=== PATIENT | male | born 1940 | race Caucasian/White ===

== ENCOUNTER → 2024-05-04 14:16 | Outpatient (CLI) | payer OTHER, SELFPAY ==
[2024-05-04 15:03] LABS: Influenza A - CEPHEID Flu A NEGATIVE (NEGATIVE); Influenza B - CEPHEID Flu B NEGATIVE (NEGATIVE); Respiratory Syncytial Virus Negative (Negative)
[2024-05-04 15:07] LABS: COVID-19 CEPHEID 4-PLEX PCR POSITIVE (Negative)
== END ==
PROVIDERS: Visit Provider Nurse Practitioner Family
DX: R05.1 Acute cough (principal)
CPT/HCPCS: 0241U

== ENCOUNTER 2024-07-17 11:15 | Outpatient (RCR) | payer OTHER, SELFPAY ==
--- NOTE | 2024-06-12 13:01 | PT.OIE ---
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 Family Provider Primary Care Provider Referring Provider Specialty: Family Practice Address: [address], [address], [place], [address] Phone: Fax: Email: [email or web address] Initial Evaluation PT-OP-A Visit Information Start: 06/12/24 07:18 Freq: Status: Active Protocol: Document 06/12/24 10:35 MB (Rec: 06/12/24 10:58 MB [id number]) Out-Patient Physical Therapy Visit Information Visit Information Visit Type Initial Evaluation Visit Note [employer] Visit Start Time 10:35 Visit Stop Time 11:15 Visit Number 1 Number of CRACKING AND FANNING MACHINE OPERATOR Visits 0 Evaluation Information Evaluation Date 06/12/24 PT-OP-B Current Condition Start: 06/12/24 07:18 Freq: Status: Active Protocol: Document 06/12/24 10:35 MB (Rec: 06/12/24 10:58 MB [id number]) Current Condition History of Current Condition Onset Date April 2024 Current Complaints See description below History of Current Condition Pt got COVID when driving up to [place] from [place] in April. He now considers it long COVID. The symptoms of the first COVID were weakness in hands and pain shooting up his forearms. Since then, his symptoms have stablized. 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 Distribution is in first three fingers of both hands and he cannot feel his fingers well. He reports tingling and shooting pain. He is having trouble with fine motor tasks including dressing, writing, eating, driving. Pt denies neck pain. Prior to February, he was very healthy and active for his age. Pt feels really distrissed about his symptoms since he used to be so healthy. His pain is less in his arms since acute COVID is over. Pt has familial hypercholestremia and no other rheumatological or other issues. Pt denies no respiratory or core problems. Pt is going to a chiropractor for spinal adjustments for neck and low back. Pt's providers are in [place] and he and are staying up in [place] in their RV until he feels well enough to drive home. He is worried about his arm and hand strength as far as driving home. Prior Treatments and Tests Chiropractor did an x-ray and said there were no major issues Treatment Goals Patient/Caregiver Goals To manipulate hands so he can drive, strengthening of the hands PT-OP-C Subjective Start: 06/12/24 07:18 Freq: Status: Active Protocol: Document 06/12/24 10:35 MB (Rec: 06/12/24 10:58 MB [id number]) OP-PT Subjective Patient Comments Patient Comments See history of current complaints Patient Questionnaires Quick Dash- Upper Extremity Quick Dash UE Score 34 Quick Dash UE Impairment 40 to 59% Impaired (Score 40- 59) PT-OP-J Posture/Palpation/Skin Start: 06/12/24 07:19 Freq: Status: Active Protocol: Document 06/12/24 10:35 MB (Rec: 06/12/24 10:58 MB [id number]) Posture Evaluation Comments Posture Comments Forward head, rounded shoulders, right thoracic kyphosis, left iliac crest higher than the left, tragus is 2 in front of AC joint, right scapula is mildly higher than the left, soft tissue feels mildly swollen medial left scapula, left calf has more muscle tone than the right. Right wrist, hand, and finger joints are swollen compared to the left. R SC joint is anterior compared to the left. Skin Assessment Other Assessments Skin Assessment Comments Edema right greater than left hand and wrist, skin is dry but no open areas and no erythema PT-OP-K Range of Motion Start: 06/12/24 07:19 Freq: Status: Active Protocol: Document 06/12/24 10:35 MB (Rec: 06/12/24 13:00 MB [id number]) Cervical Spine Range of Motion Cervical Spine Active Testing Position Sitting Flexion 25 Extension 25 Rotation Left 35 Rotation Right 25 Shoulder Goniometric Range of Motion Shoulder Left Shoulder ROM WFL No Testing Position Sitting Flexion 130 Right Shoulder ROM WFL No Testing Position Sitting Flexion 130 Elbow/Forearm Range of Motion Elbow/Forearm Bilateral Comments Elbow ROM flexion, extension and pronation and supination normal Wrist Goniometric Range of Motion ROM Limitations Wrist Limitations of Range of Motion Soft Tissue Tightness,Pain, Swelling Comments Decreased B wrist flexion and extension with more restriction right extension compared to left and add prayer hand stretch working elbows up for HEP. Finger Goniometric Range of Motion Finger ROM Limitations Finger ROM Limitations Soft Tissue Tightness,Muscle Weakness,Swelling Comments Pt with weakness and edema right greater than left hand and unable to fully extend fingers or fully sheather with more trouble on the right. Trouble with right greater than left hand finger to thumb coordination and range testing and added this to pt HEP. PT-OP-M Strength Start: 06/12/24 07:19 Freq: Status: Active Protocol: Document 06/12/24 10:35 MB (Rec: 06/12/24 13:00 MB [id number]) Shoulder Strength Shoulder Manual Muscle Testing Bilateral Flexion 5 Normal Abduction (C5) 5 Normal Elbow/Forearm Strength Elbow and Forearm Manual Muscle Testing Left Flexion (C6) 4 Good Extension (C7) 5 Normal Pronation 4 Good Supination 4+ Good+ Right Flexion (C6) 4 Good Extension (C7) 5 Normal Pronation 4- Good- Supination 4+ Good+ Wrist Strength Wrist Manual Muscle Testing Bilateral Comments In limited extension range, PT has trouble breaking extension and strength grossly 4+/5 in limited ROM. Pt has poor tolerance to flexion testing and he states his is unable to perform radial deviation and so not MMT. PT attempts to check reflexes and pt is unable to relax muscles and PT only able to elicit right biceps which is normal. PT-OP-Q Treatments Start: 06/12/24 07:19 Freq: Status: Active Protocol: Document 06/12/24 10:35 MB (Rec: 06/12/24 13:00 MB [id number]) Therapeutic Exercises Sitting Exercises Wrist extension prayer position Comments Added to HEP and performed several times with more limitations in right wri Finger to thumb Comments Added for both hands for HEP and practiced several times Self-Care/Home Management Treatment Education Patient Education Home Exercise Program Other Education Ed pt in findings and possibility that he could have other issues other than COVID for B LE and UE weakness including neurological demylenation, peripheral nerve or rheumotological concerns and ed pt on benefits of having further medical work-up . Ed pt that his presentation is complex and can initiate PT for strengthening and see if it is helpful given pt con't to ask about strengthening at end of assessment. PT-OP-T Assessment and Plan Start: 06/12/24 07:19 Freq: Status: Active Protocol: Document 06/12/24 10:35 MB (Rec: 06/12/24 13:00 MB [id number]) Physical Therapy Assessment Rehab Potential Rehabilitation Potential Fair Evaluation Complexity Number of Personal Factors/Comorbidities 1-2 Number of Body Systems Impaired 3 Clinical Presentation at Evaluation Evolving Impairments Impairments Coordination,Edema,Functional Activities,Functional Mobility ,Pain,Posture,ROM,Soft Tissue Mobility,Strength Goals 3 Impairment Lack of HEP Counter Installer Goal (LTG) Pt will perform progressive postural, range, strength and fine motor HEP with I to improve function, ability to drive and overall strength. LTG Duration 8 weeks 2 Impairment Decreased elbow, wrist and hand range and strength Counter Installer Goal (LTG) Pt will present with improved B elbow flexion, pronation, supination and wrist flexion and extension strength to at lesat 4+/5 to improve functional use of hands. LTG Duration 8 weeks 1 Impairment QuickDASH score reflects over 52% impairment Assisted Goal (LTG) Pt will present with QuickDASH score reflecting no more than 20% impairment to indicate improved function and strength . LTG Duration 8 weeks Assessment Summary Assessment Pt is an 83 y/o male presenting with complicated presentation that he feels is d/t COVID and post-COVID. Pt states he got COVID on the drive to [place] from [place] in late March. All of his providers are in [place] where he lives and he went to walk-in clinic here and also has a chiropractor here. He reports B hand and forearm shooting pain, swelling, weakness and numbness that occurred with COVID and after COVID. He also reports leg weakness B. He denies neck injury or pain and does state that he goes to chiropractor for spinal manipulation of neck and back. Pt con't to report neuropathy during assessment interview. Sitting MMT for hip flexion, knee flexion and extension and B DF and great toe extension are 4+/5. Shoulder flexion and abduction B are 5/5. Pt presents with B elbow, wrist and hand weakness and edema and weakness presentation are worse in the right hand compared to left. Proprioception testing and light touch sensory testing are normal. Pt has trouble tolerating reflex testing d/t decreased relaxation and PT is only able to elicit right biceps which is normal. PT ed pt that his presentation may be more complicated than COVID given symptoms and could include neurological demylinating or peripheral nerve or rheumatological contributions and warrant a referral back to his provider for assessment and possible other medical referrals. Pt states that he and are stuck in [place] until he feels his arms are strong enough to drive home. He asks to try PT for strengthening and so will initiate trial. Functional prognosis is guarded. Physical Therapy Plan Frequency and Duration Frequency of Treatment 1-2x/wk, trial Duration of treatment (weeks) 8 Plan of Care Start Date 06/12/24 Plan of Care End Date 08/20/24 Therapeutic Interventions Therapeutic Interventions Balance Training,Canalithic Repositioning,Coordination Training,Home Exercise Program ,Joint Mobilizations,Manual Therapy,Neuromuscular Re- education,Patient/Caregiver Education,Self-Care/Home Management,Sensory Integration ,Soft Tissue Mobilization, Taping,Therapeutic Activities, Therapeutic Exercises Modalities Cold Pack/Ice Massage,Electric Stimulation,Hot Packs, Iontophoresis,Paraffin Bath, Ultrasound Other Therapeutic Interventions Cold laser Other Referrals/Consults Referrals/Consults Recommended Refer back to PCP for full work-up with possible consideration of neurology, rheumatology or EMG testing Next Visit Focus/Plan Next Note Type Treatment Note Next Visit Plan Review and progress exercises
--- NOTE | 2024-06-12 13:01 | PT.OPPOC ---
Physical, Occupational & Speech Therapy At [facility] Current Diagnoses Pain in right arm (06/12/24) Pain in left arm (06/12/24) Visit Care Team Role Provider Type NIRMAL English Attending Provider Advanced Float Operator Family Provider Primary Care Provider Referring Provider Specialty: Family Practice Address: [address] [place] [address] [address], [place], [address] Phone: Fax: Email: [email or web address] Plan Of Care PT-OP-T Assessment and Plan Start: 06/12/24 07:19 Freq: Status: Active Protocol: Document 06/12/24 10:35 MB (Rec: 06/12/24 13:00 MB [id number]) Physical Therapy Assessment Rehab Potential Rehabilitation Potential Fair Evaluation Complexity Number of Personal Factors/Comorbidities 1-2 Number of Body Systems Impaired 3 Clinical Presentation at Evaluation Evolving Impairments Impairments Coordination,Edema,Functional Activities,Functional Mobility ,Pain,Posture,ROM,Soft Tissue Mobility,Strength Goals 3 Impairment Lack of HEP Lead Technician Goal (LTG) Pt will perform progressive postural, range, strength and fine motor HEP with I to improve function, ability to drive and overall strength. LTG Duration 8 weeks 2 Impairment Decreased elbow, wrist and hand range and strength Fpc Goal (LTG) Pt will present with improved B elbow flexion, pronation, supination and wrist flexion and extension strength to at lesat 4+/5 to improve functional use of hands. LTG Duration 8 weeks 1 Impairment QuickDASH score reflects over 52% impairment Lead Technician Goal (LTG) Pt will present with QuickDASH score reflecting no more than 20% impairment to indicate improved function and strength . LTG Duration 8 weeks Assessment Summary Assessment Pt is an 83 y/o male presenting with complicated presentation that he feels is d/t COVID and post-COVID. Pt states he got COVID on the drive to [place] from [place] in late March. All of his providers are in [place] where he lives and he went to walk-in clinic here and also has a chiropractor here. He reports B hand and forearm shooting pain, swelling, weakness and numbness that occurred with COVID and after COVID. He also reports leg weakness B. He denies neck injury or pain and does state that he goes to chiropractor for spinal manipulation of neck and back. Pt con't to report neuropathy during assessment interview. Sitting MMT for hip flexion, knee flexion and extension and B DF and great toe extension are 4+/5. Shoulder flexion and abduction B are 5/5. Pt presents with B elbow, wrist and hand weakness and edema and weakness presentation are worse in the right hand compared to left. Proprioception testing and light touch sensory testing are normal. Pt has trouble tolerating reflex testing d/t decreased relaxation and PT is only able to elicit right biceps which is normal. PT ed pt that his presentation may be more complicated than COVID given symptoms and could include neurological demylinating or peripheral nerve or rheumatological contributions and warrant a referral back to his provider for assessment and possible other medical referrals. Pt states that he and are stuck in [place] until he feels his arms are strong enough to drive home. He asks to try PT for strengthening and so will initiate trial. Functional prognosis is guarded. Physical Therapy Plan Frequency and Duration Frequency of Treatment 1-2x/wk, trial Duration of treatment (weeks) 8 Plan of Care Start Date 06/12/24 Plan of Care End Date 08/20/24 Therapeutic Interventions Therapeutic Interventions Balance Training,Canalithic Repositioning,Coordination Training,Home Exercise Program ,Joint Mobilizations,Manual Therapy,Neuromuscular Re- education,Patient/Caregiver Education,Self-Care/Home Management,Sensory Integration ,Soft Tissue Mobilization, Taping,Therapeutic Activities, Therapeutic Exercises Modalities Cold Pack/Ice Massage,Electric Stimulation,Hot Packs, Iontophoresis,Paraffin Bath, Ultrasound Other Therapeutic Interventions Cold laser Other Referrals/Consults Referrals/Consults Recommended Refer back to PCP for full work-up with possible consideration of neurology, rheumatology or EMG testing Next Visit Focus/Plan Next Note Type Treatment Note Next Visit Plan Review and progress exercises Plan of Care Dates Plan of Care Start Date 06/12/24 Plan of Care End Date 08/20/24 Electronically Signed by: Ana Maria Gates PT 06/12/24 [id number] If you are in agreement with this Plan of Care, please return a signed and dated copy. I have reviewed this Plan of Care and certify that the skilled therapy services above are required to meet the patient?s needs. Physician Signature Date Printed Name and Credentials Clinical Instructor Signature Printed Name and Credentials
--- NOTE | 2024-06-27 14:36 | PT.OTN ---
Current Diagnoses Pain in right arm (06/27/24) Pain in left arm (06/27/24) Physical Therapy Treatment Note PT-OP-A Visit Information Start: 06/12/24 07:18 Freq: Status: Active Protocol: Document 06/27/24 13:48 MB (Rec: 06/27/24 14:33 MB [id number]) Out-Patient Physical Therapy Visit Information Visit Information Visit Type Treatment Note Visit Note Pt prefers to have clinician mask. Visit Start Time 13:48 Visit Stop Time 14:28 Visit Number 2 Number of ENDS BREAKAGE CLERK Visits 0 Evaluation Information Evaluation Date 06/12/24 PT-OP-B Current Condition Start: 06/12/24 07:18 Freq: Status: Active Protocol: Document 06/12/24 10:35 MB (Rec: 06/12/24 10:58 MB [id number]) Current Condition History of Current Condition Onset Date April 2024 Current Complaints See description below History of Current Condition Pt got COVID when driving up to [place] from [place] in April. He now considers it long COVID. The symptoms of the first COVID were weakness in hands and pain shooting up his forearms. Since then, his symptoms have stablized. 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 Distribution is in first three fingers of both hands and he cannot feel his fingers well. He reports tingling and shooting pain. He is having trouble with fine motor tasks including dressing, writing, eating, driving. Pt denies neck pain. Prior to February, he was very healthy and active for his age. Pt feels really distrissed about his symptoms since he used to be so healthy. His pain is less in his arms since acute COVID is over. Pt has familial hypercholestremia and no other rheumatological or other issues. Pt denies no respiratory or core problems. Pt is going to a chiropractor for spinal adjustments for neck and low back. Pt's providers are in [place] and he and are staying up in [place] in their RV until he feels well enough to drive home. He is worried about his arm and hand strength as far as driving home. Prior Treatments and Tests Chiropractor did an x-ray and said there were no major issues Treatment Goals Patient/Caregiver Goals To manipulate hands so he can drive, strengthening of the hands PT-OP-C Subjective Start: 06/12/24 07:18 Freq: Status: Active Protocol: Document 06/27/24 13:48 MB (Rec: 06/27/24 14:33 MB [id number]) OP-PT Subjective Patient Comments Patient Comments Pt states that he has had no changes in the hand weakness. PT-OP-J Posture/Palpation/Skin Start: 06/12/24 07:19 Freq: Status: Active Protocol: Document 06/12/24 10:35 MB (Rec: 06/12/24 10:58 MB [id number]) Posture Evaluation Comments Posture Comments Forward head, rounded shoulders, right thoracic kyphosis, left iliac crest higher than the left, tragus is 2 in front of AC joint, right scapula is mildly higher than the left, soft tissue feels mildly swollen medial left scapula, left calf has more muscle tone than the right. Right wrist, hand, and finger joints are swollen compared to the left. R SC joint is anterior compared to the left. Skin Assessment Other Assessments Skin Assessment Comments Edema right greater than left hand and wrist, skin is dry but no open areas and no erythema PT-OP-K Range of Motion Start: 06/12/24 07:19 Freq: Status: Active Protocol: Document 06/12/24 10:35 MB (Rec: 06/12/24 13:00 MB [id number]) Cervical Spine Range of Motion Cervical Spine Active Testing Position Sitting Flexion 25 Extension 25 Rotation Left 35 Rotation Right 25 Shoulder Goniometric Range of Motion Shoulder Left Shoulder ROM WFL No Testing Position Sitting Flexion 130 Right Shoulder ROM WFL No Testing Position Sitting Flexion 130 Elbow/Forearm Range of Motion Elbow/Forearm Bilateral Comments Elbow ROM flexion, extension and pronation and supination normal Wrist Goniometric Range of Motion ROM Limitations Wrist Limitations of Range of Motion Soft Tissue Tightness,Pain, Swelling Comments Decreased B wrist flexion and extension with more restriction right extension compared to left and add prayer hand stretch working elbows up for HEP. 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 Trouble with right greater than left hand finger to thumb coordination and range testing and added this to pt HEP. PT-OP-M Strength Start: 06/12/24 07:19 Freq: Status: Active Protocol: Document 06/12/24 10:35 MB (Rec: 06/12/24 13:00 MB [id number]) Shoulder Strength Shoulder Manual Muscle Testing Bilateral Flexion 5 Normal Abduction (C5) 5 Normal Elbow/Forearm Strength Elbow and Forearm Manual Muscle Testing Left Flexion (C6) 4 Good Extension (C7) 5 Normal Pronation 4 Good Supination 4+ Good+ Right Flexion (C6) 4 Good Extension (C7) 5 Normal Pronation 4- Good- Supination 4+ Good+ Wrist Strength Wrist Manual Muscle Testing Bilateral Comments In limited extension range, PT has trouble breaking extension and strength grossly 4+/5 in limited ROM. Pt has poor tolerance to flexion testing and he states his is unable to perform radial deviation and so not MMT. PT attempts to check reflexes and pt is unable to relax muscles and PT only able to elicit right biceps which is normal. PT-OP-Q Treatments Start: 06/12/24 07:19 Freq: Status: Active Protocol: Document 06/27/24 13:48 MB (Rec: 06/27/24 14:33 MB [id number]) Therapeutic Exercises Sitting Exercises Resisted wrist extension and pronation and supination, elbows at side Side bilateral Resistance Level 1 TB Reps/Minutes 10 reps x2 Comments Wrist extension; supination and pronation Gripping sponge for home use Side bilateral Comments Performed today with pick sponge in zip and gave for home Syrup Shed Supervisor testing Sitting Exercise Name Poor finger flexion to allow sheet metal duct installer helper and extractor loader and unloader with a few hands Side bilateral Comments Right: 5 lb, 5 lb, 3 lb; Left: 4 lb, 6 lb, 6 lb, 10 lb Wrist extension prayer position Comments Pt has trouble getting into position with right hand and will con't Finger to thumb Comments Very poor fine motor ability Standing Exercises Wrist extension against wall Comments This does not go well and so not giving for HEP Scapular retraction against pool noodle against RV Equipment Used Red pool noodle Reps/Minutes 5 reps Comments Several reps with noodle against the wall Alphabet writing in standing Equipment Used Red pool noodle Reps/Minutes Better with back against wall (RV at home) Comments A-M with right hand and N-Z with left hand, cues to draw with wrist, harder Manual Therapy Treatment Consent Patient gave verbal consent for manual Yes treatment Other Other Manual Treatments B pects tight with limitations passive abduction and flexion in supine and pt has trouble letting PT perform PROM PT-OP-T Assessment and Plan Start: 06/12/24 07:19 Freq: Status: Active Protocol: Document 06/27/24 13:48 MB (Rec: 06/27/24 14:33 MB [id number]) Physical Therapy Assessment Rehab Potential Rehabilitation Potential Fair Evaluation Complexity Number of Personal Factors/Comorbidities 1-2 Number of Body Systems Impaired 3 Clinical Presentation at Evaluation Evolving Impairments Impairments Coordination,Edema,Functional Activities,Functional Mobility ,Pain,Posture,ROM,Soft Tissue Mobility,Strength Goals 3 Impairment Lack of HEP Fpc Goal (LTG) Pt will perform progressive postural, range, strength and fine motor HEP with I to improve function, ability to drive and overall strength. LTG Duration 8 weeks 2 Impairment Decreased elbow, wrist and hand range and strength Fpc Goal (LTG) Pt will present with improved B elbow flexion, pronation, supination and wrist flexion and extension strength to at lesat 4+/5 to improve functional use of hands. LTG Duration 8 weeks 1 Impairment QuickDASH score reflects over 52% impairment Technical Support Consultant Goal (LTG) Pt will present with QuickDASH score reflecting no more than 20% impairment to indicate improved function and strength . LTG Duration 8 weeks Assessment Summary Assessment Progressed exercises today. Pt thinks hand swelling is slightly better and weakness and fine motor findings are the same. PT is in agreement. Very poor fine motor finger performance today. PT continue to be concerned about an underlying neurological presentation. Pt's thoracic spine has many changes and is tight and will progress work on thoracic spine next treatment. Physical Therapy Plan Frequency and Duration Frequency of Treatment 1-2x/wk, trial Duration of treatment (weeks) 8 Plan of Care Start Date 06/12/24 Plan of Care End Date 08/20/24 Therapeutic Interventions Therapeutic Interventions Balance Training,Canalithic Repositioning,Coordination Training,Home Exercise Program ,Joint Mobilizations,Manual Therapy,Neuromuscular Re- education,Patient/Caregiver Education,Self-Care/Home Management,Sensory Integration ,Soft Tissue Mobilization, Taping,Therapeutic Activities, Therapeutic Exercises Modalities Cold Pack/Ice Massage,Electric Stimulation,Hot Packs, Iontophoresis,Paraffin Bath, Ultrasound Other Therapeutic Interventions Cold laser Other Referrals/Consults Referrals/Consults Recommended Refer back to PCP for full work-up with possible consideration of neurology, rheumatology or EMG testing Next Visit Focus/Plan Next Note Type Treatment Note Next Visit Plan Consider pool noodle exercises and try pulleys, consider cane flexion over pool noodle, consider thoracic mobility in sitting as far as an exercise and manual work
--- NOTE | 2024-07-04 13:56 | PT.OTN ---
Current Diagnoses Pain in right arm (07/04/24) Pain in left arm (07/04/24) Physical Therapy Treatment Note PT-OP-A Visit Information Start: 06/12/24 07:18 Freq: Status: Active Protocol: Document 07/04/24 12:55 MB (Rec: 07/04/24 13:17 MB [id number]) Out-Patient Physical Therapy Visit Information Visit Information Visit Type Treatment Note Visit Note Pt prefers to have clinician mask. Visit Start Time 12:55 Visit Stop Time 13:35 Visit Number 3 Number of KNIFE CHANGER Visits 0 Evaluation Information Evaluation Date 06/12/24 PT-OP-B Current Condition Start: 06/12/24 07:18 Freq: Status: Active Protocol: Document 06/12/24 10:35 MB (Rec: 06/12/24 10:58 MB [id number]) Current Condition History of Current Condition Onset Date April 2024 Current Complaints See description below History of Current Condition Pt got COVID when driving up to [place] from [place] in April. He now considers it long COVID. The symptoms of the first COVID were weakness in hands and pain shooting up his forearms. Since then, his symptoms have stablized. 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 Distribution is in first three fingers of both hands and he cannot feel his fingers well. He reports tingling and shooting pain. He is having trouble with fine motor tasks including dressing, writing, eating, driving. Pt denies neck pain. Prior to February, he was very healthy and active for his age. Pt feels really distrissed about his symptoms since he used to be so healthy. His pain is less in his arms since acute COVID is over. Pt has familial hypercholestremia and no other rheumatological or other issues. Pt denies no respiratory or core problems. Pt is going to a chiropractor for spinal adjustments for neck and low back. Pt's providers are in [place] and he and are staying up in [place] in their RV until he feels well enough to drive home. He is worried about his arm and hand strength as far as driving home. Prior Treatments and Tests Chiropractor did an x-ray and said there were no major issues Treatment Goals Patient/Caregiver Goals To manipulate hands so he can drive, strengthening of the hands PT-OP-C Subjective Start: 06/12/24 07:18 Freq: Status: Active Protocol: Document 07/04/24 12:55 MB (Rec: 07/04/24 13:17 MB [id number]) OP-PT Subjective Patient Comments Patient Comments Pt states that day by day, it' s hard to tell but he is moving forwards and not backwards. He notices a wrinkle returning in the thenar eminence of both hands rather than puffiness. The backs of both hands have some veins showing. He feels that in the morning, things are terrible. He cannot move as well. He will follow-up with PCP in [place] when he can. PT-OP-J Posture/Palpation/Skin Start: 06/12/24 07:19 Freq: Status: Active Protocol: Document 06/12/24 10:35 MB (Rec: 06/12/24 10:58 MB [id number]) Posture Evaluation Comments Posture Comments Forward head, rounded shoulders, right thoracic kyphosis, left iliac crest higher than the left, tragus is 2 in front of AC joint, right scapula is mildly higher than the left, soft tissue feels mildly swollen medial left scapula, left calf has more muscle tone than the right. Right wrist, hand, and finger joints are swollen compared to the left. R SC joint is anterior compared to the left. Skin Assessment Other Assessments Skin Assessment Comments Edema right greater than left hand and wrist, skin is dry but no open areas and no erythema PT-OP-K Range of Motion Start: 06/12/24 07:19 Freq: Status: Active Protocol: Document 06/12/24 10:35 MB (Rec: 06/12/24 13:00 MB [id number]) Cervical Spine Range of Motion Cervical Spine Active Testing Position Sitting Flexion 25 Extension 25 Rotation Left 35 Rotation Right 25 Shoulder Goniometric Range of Motion Shoulder Left Shoulder ROM WFL No Testing Position Sitting Flexion 130 Right Shoulder ROM WFL No Testing Position Sitting Flexion 130 Elbow/Forearm Range of Motion Elbow/Forearm Bilateral Comments Elbow ROM flexion, extension and pronation and supination normal Wrist Goniometric Range of Motion ROM Limitations Wrist Limitations of Range of Motion Soft Tissue Tightness,Pain, Swelling Comments Decreased B wrist flexion and extension with more restriction right extension compared to left and add prayer hand stretch working elbows up for HEP. 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 Trouble with right greater than left hand finger to thumb coordination and range testing and added this to pt HEP. PT-OP-M Strength Start: 06/12/24 07:19 Freq: Status: Active Protocol: Document 06/12/24 10:35 MB (Rec: 06/12/24 13:00 MB [id number]) Shoulder Strength Shoulder Manual Muscle Testing Bilateral Flexion 5 Normal Abduction (C5) 5 Normal Elbow/Forearm Strength Elbow and Forearm Manual Muscle Testing Left Flexion (C6) 4 Good Extension (C7) 5 Normal Pronation 4 Good Supination 4+ Good+ Right Flexion (C6) 4 Good Extension (C7) 5 Normal Pronation 4- Good- Supination 4+ Good+ Wrist Strength Wrist Manual Muscle Testing Bilateral Comments In limited extension range, PT has trouble breaking extension and strength grossly 4+/5 in limited ROM. Pt has poor tolerance to flexion testing and he states his is unable to perform radial deviation and so not MMT. PT attempts to check reflexes and pt is unable to relax muscles and PT only able to elicit right biceps which is normal. PT-OP-Q Treatments Start: 06/12/24 07:19 Freq: Status: Active Protocol: Document 07/04/24 12:55 MB (Rec: 07/04/24 13:17 MB [id number]) Therapeutic Exercises Supine Exercises Pect stretch Supine Exercise Name Pillow under head Side bilateral Comments 1 minute hold, knees bent Shoulder flexion with cane Supine Exercise Name Pillow under head Side bilateral Equipment Used Hiking stick and pool noodle Reps/Minutes 10 reps x2 Comments Knees bent Manual Therapy Treatment Consent Patient gave verbal consent for manual Yes treatment Other Other Manual Treatments Pt hook lying with head and legs supported: lavage and STM B UEs, hands, forearms, proximal arms and up to pects to improve lymphatic and myofascial mobility, monitor response PT-OP-T Assessment and Plan Start: 06/12/24 07:19 Freq: Status: Active Protocol: Document 07/04/24 12:55 MB (Rec: 07/04/24 13:17 MB [id number]) Physical Therapy Assessment Rehab Potential Rehabilitation Potential Fair Evaluation Complexity Number of Personal Factors/Comorbidities 1-2 Number of Body Systems Impaired 3 Clinical Presentation at Evaluation Evolving Impairments Impairments Coordination,Edema,Functional Activities,Functional Mobility ,Pain,Posture,ROM,Soft Tissue Mobility,Strength Goals 3 Impairment Lack of HEP Detention Goal (LTG) Pt will perform progressive postural, range, strength and fine motor HEP with I to improve function, ability to drive and overall strength. LTG Duration 8 weeks 2 Impairment Decreased elbow, wrist and hand range and strength Operator Bearer Systems Goal (LTG) Pt will present with improved B elbow flexion, pronation, supination and wrist flexion and extension strength to at lesat 4+/5 to improve functional use of hands. LTG Duration 8 weeks 1 Impairment QuickDASH score reflects over 52% impairment Operator Bearer Systems Goal (LTG) Pt will present with QuickDASH score reflecting no more than 20% impairment to indicate improved function and strength . LTG Duration 8 weeks Assessment Summary Assessment Pt has no exercise questions and added shoulder flexion with cane today to help with movement in the mornings and pect stretch to help with thoracic tightness and pect tightness. Lavage and STM and positional release B UEs this date to see if swelling improves. Hand specialist PT next PT treatment. Left wedding ring still stuck on 4th digit. Physical Therapy Plan Frequency and Duration Frequency of Treatment 1-2x/wk, trial Duration of treatment (weeks) 8 Plan of Care Start Date 06/12/24 Plan of Care End Date 08/20/24 Therapeutic Interventions Therapeutic Interventions Balance Training,Canalithic Repositioning,Coordination Training,Home Exercise Program ,Joint Mobilizations,Manual Therapy,Neuromuscular Re- education,Patient/Caregiver Education,Self-Care/Home Management,Sensory Integration ,Soft Tissue Mobilization, Taping,Therapeutic Activities, Therapeutic Exercises Modalities Cold Pack/Ice Massage,Electric Stimulation,Hot Packs, Iontophoresis,Paraffin Bath, Ultrasound Other Therapeutic Interventions Cold laser Other Referrals/Consults Referrals/Consults Recommended Refer back to PCP for full work-up with possible consideration of neurology, rheumatology or EMG testing Next Visit Focus/Plan Next Note Type Treatment Note Next Visit Plan Try pulleys, consider cane flexion over pool noodle, consider thoracic mobility in sitting as far as an exercise and manual work
--- NOTE | 2024-07-10 16:00 | PT.OTN ---
Current Diagnoses Pain in right arm (07/10/24) Pain in left arm (07/10/24) Physical Therapy Treatment Note PT-OP-A Visit Information Start: 06/12/24 07:18 Freq: Status: Active Protocol: Document 07/10/24 14:37 LRN (Rec: 07/10/24 15:26 LRN [id number]) Out-Patient Physical Therapy Visit Information Visit Information Visit Type Treatment Note Visit Note Pt prefers to have clinician mask. 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 He now considers it long COVID. The symptoms of the first COVID were weakness in hands and pain shooting up his forearms. Since then, his symptoms have stablized. 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 Distribution is in first three fingers of both hands and he cannot feel his fingers well. He reports tingling and shooting pain. He is having trouble with fine motor tasks including dressing, writing, eating, driving. Pt denies neck pain. Prior to February, he was very healthy and active for his age. Pt feels really distrissed about his symptoms since he used to be so healthy. His pain is less in his arms since acute COVID is over. Pt has familial hypercholestremia and no other rheumatological or other issues. Pt denies no respiratory or core problems. Pt is going to a chiropractor for spinal adjustments for neck and low back. Pt's providers are in [place] and he and are staying up in [place] in their RV until he feels well enough to drive home. He is worried about his arm and hand strength as far as driving home. Prior Treatments and Tests Chiropractor did an x-ray and said there were no major issues Treatment Goals Patient/Caregiver Goals To manipulate hands so he can drive, strengthening of the hands PT-OP-C Subjective Start: 06/12/24 07:18 Freq: Status: Active Protocol: Document 07/10/24 14:37 LRN (Rec: 07/10/24 15:26 LRN [id number]) OP-PT Subjective Patient Comments Patient Comments States he is leaving back to [place] at first of Jul. Has 2 more appts scheduled. Has been given ex's for hand ( squeezing of ball) and elbow. Got COVID 05/09/24. States the swelling in his R hand is down. States he has tinging/ numbness and lack of function in both hands Severity of function of the fingers is from worst to best, thumb to pinky. PT-OP-J Posture/Palpation/Skin Start: 06/12/24 07:19 Freq: Status: Active Protocol: Document 06/12/24 10:35 MB (Rec: 06/12/24 10:58 MB [id number]) Posture Evaluation Comments Posture Comments Forward head, rounded shoulders, right thoracic kyphosis, left iliac crest higher than the left, tragus is 2 in front of AC joint, right scapula is mildly higher than the left, soft tissue feels mildly swollen medial left scapula, left calf has more muscle tone than the right. Right wrist, hand, and finger joints are swollen compared to the left. R SC joint is anterior compared to the left. Skin Assessment Other Assessments Skin Assessment Comments Edema right greater than left hand and wrist, skin is dry but no open areas and no erythema PT-OP-K Range of Motion Start: 06/12/24 07:19 Freq: Status: Active Protocol: Document 06/12/24 10:35 MB (Rec: 06/12/24 13:00 MB [id number]) Cervical Spine Range of Motion Cervical Spine Active Testing Position Sitting Flexion 25 Extension 25 Rotation Left 35 Rotation Right 25 Shoulder Goniometric Range of Motion Shoulder Left Shoulder ROM WFL No Testing Position Sitting Flexion 130 Right Shoulder ROM WFL No Testing Position Sitting Flexion 130 Elbow/Forearm Range of Motion Elbow/Forearm Bilateral Comments Elbow ROM flexion, extension and pronation and supination normal Wrist Goniometric Range of Motion ROM Limitations Wrist Limitations of Range of Motion Soft Tissue Tightness,Pain, Swelling Comments Decreased B wrist flexion and extension with more restriction right extension compared to left and add prayer hand stretch working elbows up for HEP. Finger Goniometric Range of Motion Finger ROM Limitations Finger ROM Limitations Soft Tissue Tightness,Muscle Weakness,Swelling Comments Pt with weakness and edema right greater than left hand and unable to fully extend fingers or fully orthopedics nurse with more trouble on the right. Trouble with right greater than left hand finger to thumb coordination and range testing and added this to pt HEP. PT-OP-L Special Tests Start: 07/10/24 15:32 Freq: Status: Active Protocol: Document 07/10/24 14:37 LRN (Rec: 07/10/24 15:34 LRN [id number]) Special Tests Cervical Spine Special Tests Vertebral Artery Test Results negative Traction Test Results negative Foraminal Compression Test Results negative Spurling's Test Test Results negative (in supine) PT-OP-M Strength Start: 06/12/24 07:19 Freq: Status: Active Protocol: Document 06/12/24 10:35 MB (Rec: 06/12/24 13:00 MB [id number]) Shoulder Strength Shoulder Manual Muscle Testing Bilateral Flexion 5 Normal Abduction (C5) 5 Normal Elbow/Forearm Strength Elbow and Forearm Manual Muscle Testing Left Flexion (C6) 4 Good Extension (C7) 5 Normal Pronation 4 Good Supination 4+ Good+ Right Flexion (C6) 4 Good Extension (C7) 5 Normal Pronation 4- Good- Supination 4+ Good+ Wrist Strength Wrist Manual Muscle Testing Bilateral Comments In limited extension range, PT has trouble breaking extension and strength grossly 4+/5 in limited ROM. Pt has poor tolerance to flexion testing and he states his is unable to perform radial deviation and so not MMT. PT attempts to check reflexes and pt is unable to relax muscles and PT only able to elicit right biceps which is normal. PT-OP-Q Treatments Start: 06/12/24 07:19 Freq: Status: Active Protocol: Document 07/10/24 14:37 LRN (Rec: 07/10/24 15:26 LRN [id number]) Therapeutic Exercises Supine Exercises Fingers/thumb flex/ext Side bilateral Reps/Minutes 15x Comments Cued to tighten ms at end range Wrist flex/ext/UD/RD Side bilateral Reps/Minutes 15x Comments Cued to tighten ms at end range Elbow Flex/Ext Side bilateral Reps/Minutes 15x Comments Cued to tighten ms at end range Elbow Sup/pron Side bilateral Reps/Minutes 15x Comments Cued for palm to be straight up and down. Pect stretch Supine Exercise Name Hands behind head Side bilateral Sitting Exercises Shoulder stretch Sitting Exercise Name flex-sliding arms fwd on table . Side bilateral Reps/Minutes 3' Finger to thumb Side bilateral Reps/Minutes 2x each Comments R hand thumb to 5th limited bc 4th digit in way of 5th. Standing Exercises Shoulder flex stretch Standing Exercise Name Hands behind head with elbows on wall. Side bilateral Reps/Minutes 3' Comments Cued to slide elbows up wall for stretch. Self-Care/Home Management Treatment Education Patient Education Home Exercise Program Other Education Discussed use of tumeric for inflammation as brought up by pt. Educated pt in use of contrast bath to reduce swelling. Activities Self-Care/Home Management Activities Issued handout for contrast bath to reduce swellng. Issued HEP: Wrist sup/ext/UD stretch; Active ROM (I/S active stretch with pic of resistance) for forearm pron/ sup, wrist flex/ext, elbow flex, ext; shoulder flex stretch: over table & standing, I/S elbow on wall, pic lat shldr stretch. PT-OP-T Assessment and Plan Start: 06/12/24 07:19 Freq: Status: Active Protocol: Document 07/10/24 14:37 LRN (Rec: 07/10/24 15:26 LRN [id number]) Physical Therapy Assessment Goals 3 Impairment Lack of HEP Basting Machine Operator Goal (LTG) Pt will perform progressive postural, range, strength and fine motor HEP with I to improve function, ability to drive and overall strength. 07/04/24: I/S HEPs of wrist ext/sup/pron & finger flex ( squeeze sponge) on 06/27/24; HEP I/S of sup shdr flex stretch & pec stretch. 07/10/24: HEP: stretch wrist sup, ext, UD & active stretch ROM wrists sup/pron/flex/ext, elbow flex/ext, and shoulder flex. 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 07/10/24: HEP: Active stretch wrist flex/ext/pron/ sup, elbow flex/ext, shoulder flex table and wall slides. Passive wrist sup/ext/UD. LTG Duration 8 weeks progressed 07/10/24 1 Impairment QuickDASH score reflects over 52% impairment Basting Machine Operator Goal (LTG) Pt will present with QuickDASH score reflecting no more than 20% impairment to indicate improved function and strength . LTG Duration 8 weeks Assessment Summary Assessment Pt is an 83 y/o male presenting with swelling of hands & decreased forearm, wrist & hand mobility/function that he feels is d/t COVID and post-COVID; he is negative for signs of cervical involvement. His providers are in [place] where he lives and he plans to leave in 2 wks back home. Pt wants HEP. Today, he reports cont'd weakness in UE's & LE's and numbness/tingling in lisa hands . Pt was very receptive to educational information on edema management, and agreeable to being placed on HEP in 1-2 visits before he heads back to [place]. Physical Therapy Plan Frequency and Duration Frequency of Treatment 1-2x/wk, trial Duration of treatment (weeks) 8 Plan of Care Start Date 06/12/24 Plan of Care End Date 08/20/24 Next Visit Focus/Plan Next Note Type Treatment Note Next Visit Plan Next: ?DC & HEP for posture, UE strengthening to improve function. If time permits, try pulleys, consider cane flexion over pool noodle, consider thoracic mobility in sitting as far as an exercise and manual work.
--- NOTE | 2024-07-17 12:37 | PT.OTN ---
Current Diagnoses Pain in right arm (07/17/24) Pain in left arm (07/17/24) Physical Therapy Treatment Note PT-OP-A Visit Information Start: 06/12/24 07:18 Freq: Status: Active Protocol: Document 07/17/24 11:22 LRN (Rec: 07/17/24 11:19 LRN [id number]) Out-Patient Physical Therapy Visit Information Visit Information Visit Type Treatment Note Visit Note Pt prefers to have clinician mask. Visit Start Time 11:22 Visit Stop Time 12:08 Visit Number 5 Evaluation Information Evaluation Date 06/12/24 PT-OP-B Current Condition Start: 06/12/24 07:18 Freq: Status: Active Protocol: Document 06/12/24 10:35 MB (Rec: 06/12/24 10:58 MB [id number]) Current Condition History of Current Condition Onset Date April 2024 Current Complaints See description below History of Current Condition Pt got COVID when driving up to [place] from [place] in April. He now considers it long COVID. The symptoms of the first COVID were weakness in hands and pain shooting up his forearms. Since then, his symptoms have stablized. 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 Distribution is in first three fingers of both hands and he cannot feel his fingers well. He reports tingling and shooting pain. He is having trouble with fine motor tasks including dressing, writing, eating, driving. Pt denies neck pain. Prior to February, he was very healthy and active for his age. Pt feels really distrissed about his symptoms since he used to be so healthy. His pain is less in his arms since acute COVID is over. Pt has familial hypercholestremia and no other rheumatological or other issues. Pt denies no respiratory or core problems. Pt is going to a chiropractor for spinal adjustments for neck and low back. Pt's providers are in [place] and he and are staying up in [place] in their RV until he feels well enough to drive home. He is worried about his arm and hand strength as far as driving home. Prior Treatments and Tests Chiropractor did an x-ray and said there were no major issues Treatment Goals Patient/Caregiver Goals To manipulate hands so he can drive, strengthening of the hands PT-OP-C Subjective Start: 06/12/24 07:18 Freq: Status: Active Protocol: Document 07/17/24 11:22 LRN (Rec: 07/17/24 11:19 LRN [id number]) OP-PT Subjective Patient Comments Patient Comments Did every exercise except the hot/cold treatment Patient Questionnaires Quick Dash- Upper Extremity Quick Dash UE Score 56 Quick Dash UE Impairment 40 to 59% Impaired (Score 40- 59) PT-OP-J Posture/Palpation/Skin Start: 06/12/24 07:19 Freq: Status: Active Protocol: Document 06/12/24 10:35 MB (Rec: 06/12/24 10:58 MB [id number]) Posture Evaluation Comments Posture Comments Forward head, rounded shoulders, right thoracic kyphosis, left iliac crest higher than the left, tragus is 2 in front of AC joint, right scapula is mildly higher than the left, soft tissue feels mildly swollen medial left scapula, left calf has more muscle tone than the right. Right wrist, hand, and finger joints are swollen compared to the left. R SC joint is anterior compared to the left. Skin Assessment Other Assessments Skin Assessment Comments Edema right greater than left hand and wrist, skin is dry but no open areas and no erythema PT-OP-K Range of Motion Start: 06/12/24 07:19 Freq: Status: Active Protocol: Document 06/12/24 10:35 MB (Rec: 06/12/24 13:00 MB [id number]) Cervical Spine Range of Motion Cervical Spine Active Testing Position Sitting Flexion 25 Extension 25 Rotation Left 35 Rotation Right 25 Shoulder Goniometric Range of Motion Shoulder Left Shoulder ROM WFL No Testing Position Sitting Flexion 130 Right Shoulder ROM WFL No Testing Position Sitting Flexion 130 Elbow/Forearm Range of Motion Elbow/Forearm Bilateral Comments Elbow ROM flexion, extension and pronation and supination normal Wrist Goniometric Range of Motion ROM Limitations Wrist Limitations of Range of Motion Soft Tissue Tightness,Pain, Swelling Comments Decreased B wrist flexion and extension with more restriction right extension compared to left and add prayer hand stretch working elbows up for HEP. 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 Trouble with right greater than left hand finger to thumb coordination and range testing and added this to pt HEP. PT-OP-L Special Tests Start: 07/10/24 15:32 Freq: Status: Active Protocol: Document 07/10/24 14:37 LRN (Rec: 07/10/24 15:34 LRN [id number]) Special Tests Cervical Spine Special Tests Vertebral Artery Test Results negative Traction Test Results negative Foraminal Compression Test Results negative Spurling's Test Test Results negative (in supine) PT-OP-M Strength Start: 06/12/24 07:19 Freq: Status: Active Protocol: Document 06/12/24 10:35 MB (Rec: 06/12/24 13:00 MB [id number]) Shoulder Strength Shoulder Manual Muscle Testing Bilateral Flexion 5 Normal Abduction (C5) 5 Normal Elbow/Forearm Strength Elbow and Forearm Manual Muscle Testing Left Flexion (C6) 4 Good Extension (C7) 5 Normal Pronation 4 Good Supination 4+ Good+ Right Flexion (C6) 4 Good Extension (C7) 5 Normal Pronation 4- Good- Supination 4+ Good+ Wrist Strength Wrist Manual Muscle Testing Bilateral Comments In limited extension range, PT has trouble breaking extension and strength grossly 4+/5 in limited ROM. Pt has poor tolerance to flexion testing and he states his is unable to perform radial deviation and so not MMT. PT attempts to check reflexes and pt is unable to relax muscles and PT only able to elicit right biceps which is normal. PT-OP-Q Treatments Start: 06/12/24 07:19 Freq: Status: Active Protocol: Document 07/17/24 11:22 LRN (Rec: 07/17/24 11:20 LRN [id number]) Therapeutic Exercises Sitting Exercises Wrist UD/RD Side bilateral Equipment Used Hammer Reps/Minutes 10x 3 Comments Extra time to determine max kg resistance. Elbow sup/pron Side bilateral Equipment Used 5# and with Lev 2 Latex Free TB Reps/Minutes 10x Comments Cued for palm to be straight up and down. Fingers/thumbs flex/ext Side bilateral Reps/Minutes 10 x each Comments Cued to asst with finger AB. Elbow flex/ext Side bilateral Equipment Used 5# and with Lev 2 Latex Free TB Reps/Minutes 10x 2 Comments Cued to tighten ms at end range Gripping Side bilateral Equipment Used Yellow TPutty Reps/Minutes 5x Resisted wrist extension and pronation and supination, elbows at side Side bilateral Equipment Used Hammer & Lev 2 Latex Free TB Reps/Minutes 15 x each Finger to thumb Side bilateral Reps/Minutes 2x each Comments R hand thumb to 5th limited bc 4th digit in way of 5th. Self-Care/Home Management Treatment Education Other Education Pt educated in use of alternative modalities for contrast bath affect. I/S pt to try morejon warm water, and cold water and then to wear gloves that have some compression, recommending isotoner gloves. Activities Self-Care/Home Management Activities Issued handouts for HEP: Hand gripping, finger flex/ext,AB/ AD; wrist flex/ext/sup/pron/UD /RD; elbow flex/ext strengthening ex's. Issued Yellow TPutty & [place] TBand (latex free). PT-OP-T Assessment and Plan Start: 06/12/24 07:19 Freq: Status: Active Protocol: Document 07/17/24 11:22 LRN (Rec: 07/17/24 11:19 LRN [id number]) Physical Therapy Assessment Goals 3 Impairment Lack of HEP Half-Way Goal (LTG) Pt will perform progressive postural, range, strength and fine motor HEP with I to improve function, ability to drive and overall strength. 07/04/24: I/S HEPs of wrist ext/sup/pron & finger flex ( squeeze sponge) on 06/27/24; HEP I/S of sup shdr flex stretch & pec stretch. 07/10/24: HEP: stretch wrist sup, ext, UD & active stretch ROM wrists sup/pron/flex/ext, elbow flex/ext, and shoulder flex. LTG Duration MET GOAL except for posture due to early discharge 2 Impairment Decreased elbow, wrist and hand range and strength Half-Way Goal (LTG) Pt will present with improved B elbow flexion, pronation, supination and wrist flexion and extension strength to at lesat 4+/5 to improve functional use of hands. 07/10/24: HEP: Active stretch wrist flex/ext/pron/ sup, elbow flex/ext, shoulder flex table and wall slides. Passive wrist sup/ext/UD. LTG Duration NOT MET GOAL due to early discharge. 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 07/17/24: QuickDASH score is 56.81 (initial score 52.27). LTG Duration NOT MET GOAL Assessment Summary Assessment Pt is an 83 yo male presenting with swelling of hands & decreased forearm, wrist & hand mobility/function. The pt has been seen for 5 visits total and has been placed on HEP with handouts issued. His function show no improvement with UE Quickdash score of 56. 81. The pt is leaving at the end of the week back to [place]; therefore he changed his goal to being given a HEP to address his deficits. The pt will be discharged today to his HEP. Physical Therapy Plan Frequency and Duration Frequency of Treatment 1-2x/wk, trial Duration of treatment (weeks) 8 Plan of Care Start Date 06/12/24 Plan of Care End Date 08/20/24 Next Visit Focus/Plan Next Note Type Treatment Note Next Visit Plan All goals were not met due to early discharge with the pt returning to [place]. Thank you for your referral.
== END 2024-07-27 09:38 | disposition home or self-care (01) ==
LOC: PHYS 11:15
PROVIDERS: Family Provider Nurse Practitioner Family; PCP Nurse Practitioner Family; Referring Provider Nurse Practitioner Family; Visit Provider Nurse Practitioner Family
DX: M79.601 Pain in right arm (principal); M79.602 Pain in left arm
CPT/HCPCS: 97110; 97140; 97161; 97535